=== PATIENT | male | born 1965 | race Caucasian/White ===

== ENCOUNTER → 2018-06-08 | Outpatient (CLI) | payer SELFPAY | LOC: LAB.R 08:00 | PROVIDERS: ATTEND Nurse Practitioner Family | DX: R19.7 Diarrhea, unspecified (principal) | CPT/HCPCS: 87493 ==

== ENCOUNTER 2018-10-02 10:13 | Outpatient (CLI) | payer SELFPAY ==
[2018-10-02 17:52] LABS: ALBUMIN 3.9 g/dL (3.2-5.5); ALBUMIN/GLOBULIN RATIO 1.1 (1.0-2.2); BILIRUBIN,TOTAL 1.1 mg/dL (0.2-1.0); CALCIUM 8.5 mg/dL (8.5-10.3); CREATININE 0.9 mg/dL (0.6-1.2); TOTAL PROTEIN 7.5 g/dL (6.7-8.2)
[2018-10-02 17:54] LABS: BASOPHILS % (AUTO) 1.1 %; EOSINOPHILS # (AUTO) 0.2 10^3/uL (0.0-0.7); LYMPHOCYTES % (AUTO) 23.1 %; MEAN CORPUSCULAR HEMOGLOBIN 28.7 pg (27.0-31.0); MEAN CORPUSCULAR HGB CONC 32.8 g/dL (32.0-36.0); MEAN CORPUSCULAR VOLUME 87.4 fL (80.0-94.0); MEAN PLATELET VOLUME 7.8 fL (7.4-11.4); MONOCYTES # (AUTO) 0.4 10^3/uL (0.0-1.0); MONOCYTES % (AUTO) 8.9 %; NEUTROPHILS # (AUTO) 2.6 10^3/uL (1.5-6.6); NEUTROPHILS % (AUTO) 61.9 %; PLT - PLATELET COUNT 261 10^3/uL (130-450); RED BLOOD COUNT 4.88 10^6/uL (4.70-6.10); RED CELL DISTRIBUTION WIDTH 14.3 % (12.0-15.0); WHITE BLOOD COUNT 4.2 x10^3/uL (4.8-10.8)
== END 2018-10-02 10:14 | disposition home or self-care (01) ==
LOC: LAB.F 10:13
PROVIDERS: ATTEND Nurse Practitioner Family
DX: R61 Generalized hyperhidrosis (principal)
CPT/HCPCS: 36415; 80053; 84443; 85025

== ENCOUNTER 2018-11-14 09:00 | Outpatient (CLI) | payer MEDICAID ==
[2018-11-15 10:18] LABS: BILIRUBIN,URINE NEGATIVE (NEGATIVE); GLUCOSE, URINE (UA) NEGATIVE (NEGATIVE); KETONES,URINE (UA) NEGATIVE (NEGATIVE); LEUKOCYTE ESTERASE, URINE NEGATIVE (NEGATIVE); NITRITE,URINE NEGATIVE (NEGATIVE); OCCULT BLOOD,URINE NEGATIVE (NEGATIVE); PROTEIN,URINE NEGATIVE (NEGATIVE); UROBILINOGEN,URINE 0.2 (NORMAL) E.U./dL (NORMAL)
[2018-11-15 10:20] LABS: CLARITY,URINE TURBID (CLEAR)
[2018-11-15 10:29] LABS: AMORPHOUS SEDIMENT,UR Moderate /LPF; BACTERIA,URINE Rare /HPF (None Seen); CRYSTALS,URINE 3-5 Calcium Oxalate /LPF; MUCUS,URINE Few Strands; RBC,URINE 0-5 /HPF (0-5); SQUAMOUS EPITHELIAL CELL,UR FEW Squamous (<= Few)
== END 2018-11-14 23:59 ==
LOC: LAB.R 09:00
PROVIDERS: ATTEND Nurse Practitioner Family
DX: R61 Generalized hyperhidrosis (principal)
CPT/HCPCS: 81001; 81003; 87086

== ENCOUNTER 2018-11-16 07:47 | Outpatient (CLI) | payer MEDICAID ==
[2018-11-16 10:20] LABS: BILIRUBIN,URINE NEGATIVE (NEGATIVE); GLUCOSE, URINE (UA) NEGATIVE (NEGATIVE); KETONES,URINE (UA) NEGATIVE (NEGATIVE); LEUKOCYTE ESTERASE, URINE NEGATIVE (NEGATIVE); NITRITE,URINE NEGATIVE (NEGATIVE); OCCULT BLOOD,URINE TRACE-LYSE (NEGATIVE); PH,URINE 5.5 PH (5.0-7.5); PROTEIN,URINE NEGATIVE (NEGATIVE); UROBILINOGEN,URINE 0.2 (NORMAL) E.U./dL (NORMAL)
[2018-11-16 10:41] LABS: BACTERIA,URINE Moderate /HPF (None Seen); CLARITY,URINE CLOUDY (CLEAR); MUCUS,URINE Few Strands; RBC,URINE 0-5 /HPF (0-5); SQUAMOUS EPITHELIAL CELL,UR RARE Squamous (<= Few)
[2018-11-16 12:14] LABS: PROLACTIN 13.13 ng/mL
[2018-11-16 12:35] LABS: FOLLICLE STIMULATING HORMONE 14.98 mIU/mL
[2018-11-16 12:36] LABS: LUTEINIZING HORMONE 8.78 mIU/mL
[2018-11-16 13:15] LABS: CORTISOL 11.1 ug/dL; FREE T4 (FREE THYROXINE) 0.88 ng/dL (0.58-1.64)
== END 2018-11-16 07:48 | disposition home or self-care (01) ==
LOC: LAB.F 07:47
PROVIDERS: ATTEND Physician Assistant Medical
DX: R53.83 Other fatigue (principal); R61 Generalized hyperhidrosis; K52.9 Noninfective gastroenteritis and colitis, unspecified; R68.82 Decreased libido
CPT/HCPCS: 36415; 81001; 81599; 82024; 82533; 83001; 83002; 84146; 84403; 84439; 87086

== ENCOUNTER 2018-11-16 09:15 | Outpatient (CLI) | payer MEDICAID ==
--- NOTE | 2018-11-16 15:35 | XRAY Report ---
Reason: COUGH Procedure Date: 11/16/2018 Accession Number: [id number] / [id number] Procedure: XR - Chest 2 View X-Ray CPT Code: 64425 FULL RESULT: EXAM: CHEST RADIOGRAPHY EXAM DATE: 11/16/2018 09:36 AM. CLINICAL HISTORY: COUGH. COMPARISON: 10/24/2013 1:16 PM. TECHNIQUE: 2 views. FINDINGS: Lungs/Pleura: Mild left basilar atelectasis No focal opacities evident. No pleural effusion. No pneumothorax. Decreased volumes. Mediastinum: Heart and mediastinal contours are unremarkable. Other: None. IMPRESSION: Mild left basilar atelectasis RADIA
== END 2018-11-16 09:16 | disposition home or self-care (01) ==
LOC: DI 09:15
PROVIDERS: ATTEND Physician Assistant Medical
DX: R05 Cough (principal); J98.11 Atelectasis; R53.83 Other fatigue; R61 Generalized hyperhidrosis; K52.9 Noninfective gastroenteritis and colitis, unspecified; R68.82 Decreased libido
CPT/HCPCS: 36415; 71046; 81001; 81599; 82024; 82533; 83001; 83002; 84146; 84403; 84439; 87086

== ENCOUNTER 2018-12-06 11:07 | Outpatient (CLI) | payer MEDICAID ==
--- NOTE | 2018-12-06 13:38 | Ultrasound Report ---
Reason: FLANK PAIN, CALCIUM OXALATE UROLITHIASIS Procedure Date: 12/06/2018 Accession Number: [id number] / [id number] Procedure: US - Retroperitoneal CPT Code: FULL RESULT: EXAM: RENAL ULTRASOUND EXAM DATE: 12/06/2018 11:12 AM. CLINICAL HISTORY: FLANK PAIN, CALCIUM OXALATE UROLITHIASIS. COMPARISON: None. TECHNIQUE: Real-time scanning was performed with static images obtained. FINDINGS: Right Kidney: 11.7 x 5.3 x 6.7. cm. Normal cortical echotexture with no appreciable mass or hydronephrosis. 4 mm hyperechoic focus superior pole favoring possible stone. Left Kidney: 12 x 5.7 x 6 cm. Normal echotexture with no stones, contour-deforming masses, or hydronephrosis. Bladder: Bilateral jets seen. The prevoid bladder volume was 85 cc. The postvoid bladder volume was 4 cc. Other: Nonspecific cone-shaped echogenic appearance to the central prostate gland along the expected course of the prostatic urethra measuring 9 x 8 x 16 mm. IMPRESSION: 1. Possible 4 mm nonobstructive right upper pole nephrolithiasis. 2. Nonspecific echogenic appearance to the central prostate gland along expected course of prostatic urethra. Correlate with history of prior instrumentation/TURP. RADIA
== END 2018-12-06 11:08 | disposition home or self-care (01) ==
LOC: DI 11:07
PROVIDERS: ATTEND Physician Assistant Medical
DX: R10.9 Unspecified abdominal pain (principal); N20.0 Calculus of kidney
CPT/HCPCS: 76770

== ENCOUNTER 2018-12-12 08:00 | Outpatient (CLI) | payer MEDICAID | END 2018-12-12 23:59 | disposition home or self-care (01) | LOC: LAB.F 08:00 | PROVIDERS: ATTEND Internal Medicine | DX: Z12.5 Encounter for screening for malignant neoplasm of prostate (principal) | CPT/HCPCS: 36415; 84153 ==

== ENCOUNTER 2019-10-08 13:07 | Outpatient (CLI) | payer MEDICAID ==
--- NOTE | 2019-10-09 21:06 | SLEEP CARE CONSULTATION ---
Information from patient questionnaire entered by Rebecca Islas. I have reviewed and concur with the information entered by Rebecca Islas. This document represents the service I personally performed and the decisions made by me, Abel Sands MD, [facility]. History of Present Illness Reason for Visit: New patient Chief Complaint: reports: Excessive daytime sleepiness, Fatigue Duration of Symptoms: 3 years Usual bedtime: 2300 Time it takes to fall asleep: few minutes Snores at night: No Observed to quit breathing while asleep: No Sleeps alone due to snoring: No Number of times waking at night: 1 Reasons for waking at night: reports: Bathroom Toss, Turn, or Twitch while sleeping: Yes Recalls having dreams: No Usually gets out of bed at: [id number] Feels refreshed in the morning: No Morning headache: Yes Sleepy or fatigued during the day: Yes Ever fallen asleep while driving: Yes Takes day naps: No Dreams during day naps: Yes Prior sleep studies: No Additional HPI information: I had the pleasure of seeing Mr. Salinas today regarding the possibility of him having a sleep disorder. As you know, he is a 54 year old gentleman who complains of excessive daytime sleepiness and persistent fatigue for the past 3 years. The patient tells me that he normally goes to bed around 11 pm, and it takes him approximately just a few minutes to fall asleep. He has not been told that he snores loudly or irregularly at night. He has never been observed to stop breathing in his sleep. His sleeps in the same bed. He can recall waking up on the average of 1 - 2 times during the night. Most of the time he wakes up because of having to use the bathroom. He has never awakened because of his own snoring, choking, or having to gasp for air. There is a lot of tossing and turning in his sleep. He has somniloquy (sleep talking) but not somnambulism (sleep walking). Generally he can recall having dreams. In the morning he usually gets up out of the bed around 6 - 7 a.m. not feeling refreshed nor rested. He usually has a morning headache. During the day he complains of feeling sleepy and fatigued. His score on [place] Sleepiness Scale is 10 out of 24. He has fallen asleep while driving and has gone out of the geeta. He usually does not take naps during the day. Upon falling asleep during the day he reports having dreams. He has never had sleep paralysis, experienced cataplexy but reports symptoms of restless leg syndrome. He also reports having impaired concentration during the day. 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 Patient is and lives in [place]. Have you smoked in the past 12 months: No Alcohol use: Yes Alcohol amount and frequency: 1/month Caffeine use: Yes Caffeine amount and frequency: 3-4/day Family History Family history of sleep disordered breathing: No Allergies and Home Medications Drug allergies reviewed: Yes Home medication list reviewed: Yes Allergy and home medication list: Meds: fluoxetine in the evening and testosterone Allergies: no known drug allergies Review of Systems Weight gain over past 5 years: 20 Cardiovascular: denies: high blood pressure, palpitations, chest pain, irregular heart rate or pulse, leg or foot swelling, have to sleep sitting up, other Respiratory: reports: shortness of breath, wheeze Gastrointestinal: reports: heartburn, abdominal pain Neurological: reports: headaches Psychiatric: reports: anxiety, depression, mood disorder Ear/Nose/Throat: reports: nasal congestion Endocrine: reports: sluggishness, too hot or cold, unexplained weakness Musculoskeletal: denies: joint pain, neck pain, back pain, joint swelling, muscle pain or cramping, mobility problems, other Immunologic: reports: sneezing, allergies to food or environment Physical Exam Vital signs obtained and entered by: Dr. Sands Blood Pressure: 127/86 Cuff size: regular Heart Rate: 57 O2 Saturation: 95 Height: 5 ft 9 in Weight: 180 lb Body Mass Index: 26.6 BMI Classification: Overweight Neck circumference: 16 Mood/affect: normal HEENT: No craniofacial malformation Nostrils: patent to airflow Turbinates: normal Septum: midline Mouth and throat: narrow oropharynx Soft palate: long Hard palate: normal Uvula: normal Uvula visualization: 50% Mallampati Class II Tongue: normal in size Tonsils: small Chin and jaw: normal size and position Neck: normal w/o lymphadenopathy or thyromegaly Heart: regular rate and rhythm Lungs: clear bilaterally Abdomen: soft, non-tender Extremities: no edema or clubbing Neurologic: intact, no focal deficits Impression and Plan IMPRESSION: 1. Hypersomnia, despite getting enough sleep at night. We will first rule out sleep disrupting conditions such as sleep-disordered breathing. Narrow oropharynx and obesity are common predisposing factors for obstructive sleep apnea-hypopnea syndrome. I recommend proceeding to polysomnography to further evaluate his complaint of excessive daytime sleepiness. I informed the patient of what the sleep studies involve and after some discussion, he agreed to proceed. Multiple sleep latency test (MSLT) cannot be performed at this time because the patient is taking a selective serotonin reuptake inhibitor which can suppress REM sleep. Plan: 1. Schedule an in-laboratory polysomnography 2. Avoid long distance driving or when feeling sleepy. 3. Avoid alcohol, sedative and muscle relaxant around bedtime. 4. Attempt to lose weight. 5. Return in 1 to 2 weeks after the study to discuss results and initiate therapy. I spent 100% of this 20 minute visit face to face with the patient with greater than 50% of this was spent time counseling the patient and coordination of care.
[2019-10-09 21:07] VITALS: BP 127/86
== END 2019-10-08 13:08 | disposition home or self-care (01) ==
LOC: SC 13:07
PROVIDERS: ATTEND Internal Medicine Pulmonary Disease
DX: G47.10 Hypersomnia, unspecified (principal)
CPT/HCPCS: 99203; 99212

== ENCOUNTER 2019-10-25 19:33 | Outpatient (CLI) | payer MEDICAID | END 2019-10-25 19:34 | disposition home or self-care (01) | LOC: SC 19:33 | PROVIDERS: ATTEND Internal Medicine Pulmonary Disease | DX: G47.33 Obstructive sleep apnea (adult) (pediatric) (principal); G47.61 Periodic limb movement disorder; G47.63 Sleep related bruxism | CPT/HCPCS: 95810 ==

== ENCOUNTER 2020-01-28 11:13 | Outpatient (CLI) | payer MEDICAID ==
--- NOTE | 2020-01-28 11:04 | SLEEP CARE CONSULTATION ---
Information from patient questionnaire entered by Donna Martínez. I have reviewed and concur with the information entered by Donna Martínez. This document represents the service I personally performed and the decisions made by me, Abel Sands MD, [facility]. History of Present Illness Previous diagnosis: Mild, Obstructive Sleep Apnea-Hypopnea Syndrome AHI: 13.3 (in 2019) Reason for follow up: other (positional therapy) HPI additional information: To minimize the risk of COVID-19 exposure, we have the option to conduct your visit with me over the phone. I will be able to discuss your health and offer medical advice. If you agree, we will bill your insurance. Do you agree to this telephone service: YES. HPI: Mr. Salinas was called today to follow up on positioning therapy. He was diagnosed to have mild obstructive sleep apnea-hypopnea syndrome but severe when sleeping supine. The patient reports using a pillow to keep him from rolling onto his back. According to him, this works beautifully. He does not snore much. He wakes up feeling rested and stays awake/alert during the day. Subjective Initial [place] Sleepiness Scale score: 20 Allergies and Home Medications Drug allergies reviewed: Yes Home medication list reviewed: Yes Review of Systems Review of systems same as previous: Yes Physical Exam Height: 5 ft 9 in Impression and Plan IMPRESSION: 1. Obstructive Sleep Apnea-Hypopnea Syndrome, mild, with the patient doing well with positioning therapy. He will stay with the treatment. He does not wish to try CPAP at this time. PLAN: 1. Continue with the positioning therapy. 2. Return for follow up on as needed basis. 3. Consider CPAP therapy if later on he has to sleep on his back part of the night. I spent 100% of the 6 minute phone call with the patient with greater than 50% of this was spent time counseling the patient and coordination of care.
== END 2020-01-28 11:14 | disposition home or self-care (01) ==
LOC: SC 11:13
PROVIDERS: ATTEND Internal Medicine Pulmonary Disease
DX: G47.33 Obstructive sleep apnea (adult) (pediatric) (principal)

== ENCOUNTER 2020-10-26 09:40 | Outpatient (CLI) | payer MEDICAID ==
[2020-10-26 10:01] LABS: BASOPHILS # (AUTO) 0.1 10^3/uL (0.0-0.1); BASOPHILS % (AUTO) 1.2 %; EOSINOPHILS # (AUTO) 0.2 10^3/uL (0.0-0.7); EOSINOPHILS % (AUTO) 3.8 %; HCT - HEMATOCRIT 47.1 % (42.0-52.0); HGB - HEMOGLOBIN 15.7 g/dL (14.0-18.0); LYMPHOCYTES # (AUTO) 1.1 10^3/uL (1.5-3.5); LYMPHOCYTES % (AUTO) 22.6 %; MEAN CORPUSCULAR HEMOGLOBIN 28.9 pg (27.0-31.0); MEAN CORPUSCULAR HGB CONC 33.3 g/dL (32.0-36.0); MEAN CORPUSCULAR VOLUME 86.7 fL (80.0-94.0); MONOCYTES # (AUTO) 0.4 10^3/uL (0.0-1.0); MONOCYTES % (AUTO) 8.2 %; NEUTROPHILS # (AUTO) 3.2 10^3/uL (1.5-6.6); NEUTROPHILS % (AUTO) 63.6 %; PLT - PLATELET COUNT 249 10^3/uL (130-450); RED BLOOD COUNT 5.43 10^6/uL (4.70-6.10)
[2020-10-26 10:19] LABS: ALBUMIN 4.2 g/dL (3.2-5.5); ALBUMIN/GLOBULIN RATIO 1.2 (1.0-2.2); ALKALINE PHOSPHATASE 86 IU/L (42-121); ALT ALANINE AMINOTRANSFERASE 16 IU/L (10-60); AST ASPARTATE AMINOTRANSFERASE 27 IU/L (10-42); BILIRUBIN,TOTAL 0.8 mg/dL (0.2-1.0); BUN - BLOOD UREA NITROGEN 16 mg/dL (6-20); CALCIUM 9.3 mg/dL (8.5-10.3); CARBON DIOXIDE - CO2 23 mmol/L (21-32); CHLORIDE 103 mmol/L (101-111); CHOL/HDL RATIO 7.2 (<5.0); CHOLESTEROL 310 mg/dL; CREATININE 0.9 mg/dL (0.6-1.2); GFR - MDRD 87 (>89); GLUCOSE 96 mg/dL (70-100); HDL CHOLESTEROL 43 mg/dL; LDL CHOLESTEROL,CALCULATED 211 mg/dL; LDL/HDL RATIO 4.9 (<3.6); POTASSIUM 4.1 mmol/L (3.5-5.0); SODIUM 133 mmol/L (135-145); TOTAL PROTEIN 7.8 g/dL (6.7-8.2); TRIGLYCERIDES 278 mg/dL; VLDL CHOLESTEROL 56 mg/dL
[2020-10-26 10:30] LABS: THYROID STIMULATING HORMONE 2.34 uIU/mL (0.34-5.60)
== END 2020-10-26 09:41 | disposition home or self-care (01) ==
LOC: LAB 09:40
PROVIDERS: ATTEND Physician Assistant
DX: Z00.00 Encounter for general adult medical examination without abnormal findings (principal); Z51.81 Encounter for therapeutic drug level monitoring; Z79.899 Other long term (current) drug therapy; R51.9 Headache, unspecified; R53.83 Other fatigue; E78.5 Hyperlipidemia, unspecified
CPT/HCPCS: 36415; 80053; 80061; 81599; 83721; 84153; 84402; 84403; 84443; 85025

== ENCOUNTER 2020-12-08 07:17 | Day surgery (SDC) | payer MEDICAID ==
[2020-12-08] MEDS ORDERED: LACTATED RINGERS 1,000 ML IV ONE ×2 (07:29→09:06)
[2020-12-08] MEDS ORDERED: fentaNYL 250 MCG/5 ML VIAL ONE (08:43)
[2020-12-08] MEDS ORDERED: MIDAZOLAM 2 MG/2 ML VIAL ONE ×2 (08:43→08:44)
[2020-12-08 09:33] VITALS: BP 98/62
== END 2020-12-08 07:18 | disposition home or self-care (01) ==
LOC: SDS 07:17
PROVIDERS: ATTEND Surgery
PROC: 0DBN8ZZ Excision of Sigmoid Colon, Via Natural or Artificial Opening Endoscopic (ICD-10-PCS; principal; 2020-12-08 08:30)
DX: Z12.11 Encounter for screening for malignant neoplasm of colon (principal); D12.5 Benign neoplasm of sigmoid colon; K57.30 Diverticulosis of large intestine without perforation or abscess without bleeding; K64.8 Other hemorrhoids; E23.0 Hypopituitarism; Z79.82 Long term (current) use of aspirin; Z79.899 Other long term (current) drug therapy
CPT/HCPCS: 45385; J3010; J7120

== ENCOUNTER 2021-04-29 08:01 | Outpatient (CLI) | payer MEDICAID ==
--- NOTE | 2021-04-30 11:25 | Ultrasound Report ---
LIMITED ULTRASOUND OF RIGHT BREAST AND AXILLA: 04/29/2021 CLINICAL: Palpable right axilla lump. Comparison is made to exam dated: 04/29/2021 mammogram - [facility]. Color flow and real-time ultrasound of the right breast axilla were performed. Mei scale images of the real-time examination were reviewed. No significant abnormalities were seen sonographically in the right axilla. No mass or other abnorma lity to correspond with a clinically palpable finding. IMPRESSION: NEGATIVE There is no sonographic evidence of malignancy. This exam was interpreted at Station ID: [id number]. Electronically Signed By: Kareem Norton M.D. jr/:04/29/2021 09:43:11 Ultrasound BI-RADS: 1 Negative BI-RADS CATEGORY: (1) - 1 Unspecified - other recall n/a LATERALITY: (B)
--- NOTE | 2021-04-30 11:25 | Mammography Report ---
MALE BILATERAL DIGITAL DIAGNOSTIC MAMMOGRAM 3D/2D: 04/29/2021 CLINICAL: Palpable right breast lump. No prior exams were available for comparison. There is a benign area of fibroglandular tissue in the right breast central to the nipple in the retr oareolar region. There is a benign area of fibroglandular tissue in the left breast central to the nipple in the retro areolar region. No other significant masses or calcifications are seen in either breast. IMPRESSION: INCOMPLETE: NEEDS ADDITIONAL IMAGING EVALUATION No mass or suspicious finding. An ultrasound of the right axillary palpable region will be performed, which is not within the field of view on this mammogram. This exam was interpreted at Station ID: [id number]. NOTE: For mammograms, a report in lay terms will be sent to the patient. Approximately 15% of breast malignancies will not be visualized mammographically. In the management of a palpable breast mass, a negative mammogram must not discourage biopsy of a clinically suspicious lesion. Electronically Signed By: Kareem Norton M.D. jr/:04/29/2021 09:42:19 ACR BI-RADS Category 0: Incomplete 3340F PARENCHYMAL PATTERN: (A) - The breast(s) demonstrate(s) scattered fibroglandular densities. BI-RADS CATEGORY: (0) - 0 Unspecified - other recall n/a LATERALITY: (B)
== END 2021-04-29 08:02 | disposition home or self-care (01) ==
LOC: DI 08:01
PROVIDERS: ATTEND Physician Assistant
DX: N63.31 Unspecified lump in axillary tail of the right breast (principal); M25.541 Pain in joints of right hand
CPT/HCPCS: 36415; 80061; 83721; 84550; 85651; 86140; 86200; 86430

== ENCOUNTER 2021-04-29 09:30 | Outpatient (CLI) | payer MEDICAID ==
[2021-04-29 10:21] LABS: CHOL/HDL RATIO 3.9 (<5.0); CHOLESTEROL 150 mg/dL; HDL CHOLESTEROL 38 mg/dL; LDL CHOLESTEROL,CALCULATED 78 mg/dL; LDL/HDL RATIO 2.1 (<3.6); TRIGLYCERIDES 172 mg/dL; URIC ACID 5.3 mg/dL (2.6-7.2); VLDL CHOLESTEROL 34 mg/dL
[2021-04-29 10:26] LABS: CRP - C-REACTIVE PROTEIN < 1.0 mg/dL (0-1.0)
[2021-04-29 13:07] LABS: RHEUMATOID FACTOR NEGATIVE (Negative)
== END 2021-04-29 09:31 | disposition home or self-care (01) ==
LOC: LAB 09:30
PROVIDERS: ATTEND Physician Assistant
DX: M25.541 Pain in joints of right hand (principal)
CPT/HCPCS: 36415; 80061; 83721; 84550; 85651; 86140; 86200; 86430

== ENCOUNTER 2021-05-17 12:22 | Outpatient (CLI) | payer MEDICAID ==
--- NOTE | 2021-05-17 11:26 | XRAY Report ---
PROCEDURE: Shoulder 3 View RT INDICATIONS: SHOULDER IMPINGEMENT SYNDROME TECHNIQUE: 3 views of the shoulder were acquired. COMPARISON: None. FINDINGS: Bones: No fractures or dislocations. No suspicious bony lesions. Visualized ribs appear intact. H umeral head is high riding. Appearance of degenerative cystic changes noted within the humeral head a s well as prominence of the tuberosity appearing degenerative. Minimal to mild acromioclavicular narr owing. Soft tissues: No suspicious soft tissue calcifications. Tendon anchors noted overlying the right hu meral head. IMPRESSION: 1. High riding humeral head which can be seen with rotator cuff pathology. 2. Cystic change humeral head appearing degenerative including prominent at the tuberosity. Reviewed by: Lynn Alan MD on 05/17/2021 11:24 AM PDT Approved by: Lynn Alan MD on 05/17/2021 11:24 AM PDT Station ID: [id number]
== END 2021-05-17 23:59 | disposition home or self-care (01) ==
LOC: DI.N 12:22
PROVIDERS: ATTEND Physician Assistant
DX: R93.6 Abnormal findings on diagnostic imaging of limbs (principal)

== ENCOUNTER 2021-07-27 09:19 | Outpatient (CLI) | payer MEDICAID | END 2021-07-27 09:20 | disposition home or self-care (01) | LOC: LAB 09:19 | PROVIDERS: ATTEND Internal Medicine | DX: E29.1 Testicular hypofunction (principal) | CPT/HCPCS: 81599; 84402; 84403 ==

== ENCOUNTER 2022-07-06 18:07 | Emergency (ER) | payer MEDICAID ==
[2022-07-06] MEDS ORDERED: RABIES IMMUNE GLOBULIN 300 UNITS/2 ML IM STA (19:18)
[2022-07-06] MEDS ORDERED: RABIES VACCINE 2.5 UNIT SYRINGE IM ONE (19:18)
--- NOTE | 2022-07-06 19:22 | ED Physician Documentation ---
History of Present Illness - Stated complaint Stated Complaint: BAT EXPOSURE - Chief complaint Chief Complaint: General - History obtained from History obtained from: Patient - History of Present Illness Pain level max: 0 Pain level now: 0 - Additonal information Additional information: 56-year-old male states that he had a bat exposure approximately 4 days ago at home. Their primary care provider told him to come to the emergency department for rabies immunoglobulin and vaccination series. Review of Systems Constitutional: denies: Fever, Chills Respiratory: denies: Dyspnea GI: denies: Vomiting PD PAST MEDICAL HISTORY - Past Medical History Cardiovascular: High cholesterol Respiratory: None Endocrine/Autoimmune: None GI: None : None HEENT: None Psych: Anxiety Musculoskeletal: None Derm: None - Past Surgical History Past Surgical History: Yes Ortho: Shoulder arthroplasty - Present Medications Home Medications: Ambulatory Orders Medication Instructions Recorded Confirmed Fluoxetine HCl [Prozac] 40 mg PO DAILY PM 12/07/20 12/08/20 Rosuvastatin Calcium [Crestor] 20 mg PO DAILY PM 12/07/20 12/08/20 - Allergies Allergies/Adverse Reactions: Allergies Allergy/AdvReac Type Severity Reaction Status Date / Time No Known Drug Allergies Allergy Verified 07/06/22 18:23 - Social History Does the pt smoke?: No Smoking Status: Never smoker Does the pt drink ETOH?: Yes Does the pt have substance abuse?: No - Immunizations Immunizations are current?: Yes - POLST Patient has POLST: No PD ED PE NORMAL - Vitals Vital signs reviewed: Yes - General General: Alert and oriented X 3, No acute distress - HEENT HEENT: Moist mucous membranes - Respiratory Respiratory: No respiratory distress - Derm Derm: Warm and dry - Neuro Neuro: Alert and oriented X 3 Results - Vitals Vitals: Vital Signs - 24 hr 07/06/22 07/06/22 18:21 20:43 Temperature 36.4 C L 36.6 C Heart Rate 88 57 L Respiratory 16 16 Rate Blood Pressure 119/67 111/68 O2 Saturation 96 98 Oxygen O2 Source Room air PD MEDICAL DECISION MAKING - ED course Complexity details: considered differential, d/w patient ED course: Patient was given the rabies vaccination and rabies immunoglobulin. He was given recommendation for follow-up to complete the course of treatment. Patient counseled regarding signs and symptoms for which I believe and urgent re- evaluation would be necessary. Patient with good understanding of and agreement to plan and is comfortable going home at this time This document was made in part using voice recognition software. While efforts are made to proofread this document, sound alike and grammatical errors may occur. Departure - Departure Disposition: 01 Home, Self Care Clinical Impression: Rabies, need for prophylactic vaccination against Condition: Good Instructions: Rabies Follow-Up: your,doctor tomorrow [Other] Comments: You were given the rabies vaccine tonight. Please follow-up with your doctor for the remainder of the vaccination series. Your doctor can fax an order to the [facility] at [phone] and they will arrange the remainder of the rabies series for you. Alternatively you may return here on day 3, 7, 14 for the remainder of your vaccinations. today is day 0. The next doses will be 07/09, 07/13, and 07/20 Discharge Date/Time: 07/06/22 20:45
[2022-07-06 20:44] VITALS: BP 111/68
== END 2022-07-06 20:45 | disposition home or self-care (01) ==
LOC: ED 18:07
DX: Z29.14 Encounter for prophylactic rabies immune globulin (principal)
CPT/HCPCS: 90471; 96372; 99281; 99282

== ENCOUNTER 2022-07-09 12:05 | Emergency (ER) | payer MEDICAID ==
[2022-07-09 12:23] VITALS: BP 111/75
[2022-07-09] MEDS: RABIES VACCINE 2.5 UNIT SYRINGE IM ONE (12:45)
--- NOTE | 2022-07-09 12:56 | ED Physician Documentation ---
History of Present Illness - Stated complaint Stated Complaint: RABIE SHOT 2ND - Chief complaint Chief Complaint: General - History obtained from History obtained from: Patient - History of Present Illness Timing: How many days ago (3) Quality: here for 2nd in series of rabies vaccine, having been exposed to bat in house without known bite/contact. Got first one 3 days ago without symptoms other than mild local soreness of injection. Review of Systems Constitutional: denies: Fever, Chills Skin: denies: Rash, Lesions Neurologic: denies: Headache PD PAST MEDICAL HISTORY - Past Medical History Cardiovascular: High cholesterol Respiratory: None Endocrine/Autoimmune: None GI: None : None HEENT: None Psych: Anxiety Musculoskeletal: None Derm: None - Past Surgical History Past Surgical History: Yes Ortho: Shoulder arthroplasty - Present Medications Home Medications: Ambulatory Orders Medication Instructions Recorded Confirmed Fluoxetine HCl [Prozac] 40 mg PO DAILY PM 12/07/20 12/08/20 Rosuvastatin Calcium [Crestor] 20 mg PO DAILY PM 12/07/20 12/08/20 - Allergies Allergies/Adverse Reactions: Allergies Allergy/AdvReac Type Severity Reaction Status Date / Time No Known Drug Allergies Allergy Verified 07/09/22 12:24 - Social History Does the pt smoke?: No Smoking Status: Never smoker Does the pt drink ETOH?: Yes Does the pt have substance abuse?: No - Immunizations Immunizations are current?: Yes - POLST Patient has POLST: No PD ED PE NORMAL - Vitals Vital signs reviewed: Yes - General General: Alert and oriented X 3, No acute distress, Well developed/nourished - Derm Derm: Normal color, Warm and dry - Extremities Extremities: Normal ROM s pain - Neuro Neuro: Alert and oriented X 3, No motor deficit, Normal speech Results - Vitals Vitals: Vital Signs - 24 hr 07/09/22 12:21 Temperature 36.1 C L Heart Rate 67 Respiratory 16 Rate Blood Pressure 111/75 O2 Saturation 97 Oxygen O2 Source Room air PD MEDICAL DECISION MAKING - ED course Complexity details: reviewed old records, d/w patient Departure - Departure Disposition: 01 Home, Self Care Clinical Impression: Rabies, need for prophylactic vaccination against Condition: Stable Record reviewed to determine appropriate education?: Yes Comments: You received the second in the series for rabies vaccination. Return in or follow-up for the third and fourth doses as outlined on your initial visit at the appropriate times. Typically that is 1 week and 2 weeks after the initial vaccine. Discharge Date/Time: 07/09/22 13:03
== END 2022-07-09 13:03 | disposition home or self-care (01) ==
LOC: ED 12:05
DX: Z29.14 Encounter for prophylactic rabies immune globulin (principal); Z23 Encounter for immunization; Z71.85 Encounter for immunization safety counseling
CPT/HCPCS: 90471

== ENCOUNTER 2022-10-01 23:19 | Emergency (ER) | payer MEDICAID ==
[2022-10-02] MEDS ORDERED: FAMOTIDINE 20 MG/2 ML VIAL IVP STA (00:06)
[2022-10-02] MEDS ORDERED: KETOROLAC 15 MG/ML VIAL IVP STA (00:06)
[2022-10-02] MEDS ORDERED: SODIUM CHLORIDE 0.9% 1,000 ML IV STA (00:06)
[2022-10-02 00:15] LABS: BASOPHILS % (AUTO) 0.4 %; EOSINOPHILS # (AUTO) 0.1 10^3/uL (0.0-0.7); EOSINOPHILS % (AUTO) 1.1 %; HCT - HEMATOCRIT 43.7 % (42.0-52.0); HGB - HEMOGLOBIN 14.1 g/dL (14.0-18.0); LYMPHOCYTES # (AUTO) 0.6 10^3/uL (1.5-3.5); LYMPHOCYTES % (AUTO) 6.5 %; MEAN CORPUSCULAR HEMOGLOBIN 28.4 pg (27.0-31.0); MEAN CORPUSCULAR HGB CONC 32.3 g/dL (32.0-36.0); MEAN CORPUSCULAR VOLUME 88.1 fL (80.0-94.0); MEAN PLATELET VOLUME 9.2 fL (7.4-11.4); MONOCYTES # (AUTO) 0.8 10^3/uL (0.0-1.0); MONOCYTES % (AUTO) 8.7 %; PLT - PLATELET COUNT 227 10^3/uL (130-450); RED BLOOD COUNT 4.96 10^6/uL (4.70-6.10); RED CELL DISTRIBUTION WIDTH 13.6 % (12.0-15.0); WHITE BLOOD COUNT 9.7 x10^3/uL (4.8-10.8)
[2022-10-02 00:28] LABS: ALBUMIN 3.7 g/dL (3.2-5.5); BILIRUBIN,TOTAL 0.7 mg/dL (0.2-1.0); CALCIUM 8.8 mg/dL (8.5-10.3); POTASSIUM 3.8 mmol/L (3.5-5.0); TOTAL PROTEIN 7.4 g/dL (6.7-8.2)
--- NOTE | 2022-10-02 01:57 | ED Physician Documentation ---
History of Present Illness - Stated complaint Stated Complaint: NEAR SYNCOPE - Chief complaint Chief Complaint: Neuro - History obtained from History obtained from: Patient - Additonal information Additional information: Patient is a 57-year-old with no significant past medical history presenting for evaluation of a near syncopal episode. Patient had been out at dinner with his , ate mussels, shellfish, oysters.They I then returned home and were relaxing. He had been sitting down in a chair taking a nap and when he stood up, his noticed that he appeared pale. Patient reported that he did not feel well and felt Dizzy. He felt that he Needed to have a bowel movement and had diarrhea.Patient reports still having some mild Periumbilical abdominal discomfort, Feels like a burning but his symptoms are improving.He denies having chest pain, difficulty breathing, headache. He reports feeling fine earlier today. He did have positive orthostatics for the paramedics and was started on IV fluids. Review of Systems Constitutional: denies: Fever Nose: denies: Congestion Cardiac: denies: Chest pain / pressure Respiratory: denies: Dyspnea GI: reports: Abdominal Pain, Diarrhea. denies: Vomiting : denies: Dysuria Musculoskeletal: denies: Back pain Neurologic: reports: Near syncope. denies: Headache PD PAST MEDICAL HISTORY - Past Medical History Past Medical History: Yes Cardiovascular: High cholesterol Respiratory: None Endocrine/Autoimmune: None GI: None : None HEENT: None Psych: Depression, Anxiety Musculoskeletal: None Derm: None - Past Surgical History Past Surgical History: Yes Ortho: Shoulder arthroplasty - Present Medications Home Medications: Ambulatory Orders Medication Instructions Recorded Confirmed Fluoxetine HCl [Prozac] 40 mg PO DAILY PM 12/07/20 07/13/22 Rosuvastatin Calcium [Crestor] 20 mg PO DAILY PM 12/07/20 07/13/22 - Allergies Allergies/Adverse Reactions: Allergies Allergy/AdvReac Type Severity Reaction Status Date / Time No Known Drug Allergies Allergy Verified 10/01/22 23:30 - Social History Does the pt smoke?: No Smoking Status: Never smoker Does the pt drink ETOH?: Yes Does the pt have substance abuse?: No - Immunizations Immunizations are current?: Yes - POLST Patient has POLST: No PD ED PE NORMAL - General General: Alert and oriented X 3, No acute distress, Well developed/nourished - HEENT HEENT: Atraumatic, Moist mucous membranes, Pharynx benign - Neck Neck: Supple, no meningeal sign - Cardiac Cardiac: RRR, No murmur - Respiratory Respiratory: No respiratory distress, Clear bilaterally - Abdomen Abdomen: Normal bowel sounds, Soft, Non distended, Other (Mild periumbilical tenderness to palpation, no rebound, no guarding, No pulsatile masses Or hernia) - Derm Derm: Warm and dry - Neuro Neuro: Alert and oriented X 3, deli slicer 2-12 intact, No motor deficit, Normal speech Results - Vitals Vitals: Vital Signs - 24 hr 10/01/22 10/01/22 10/02/22 23:15 23:29 00:20 Temperature 36.6 C Heart Rate 59 L 65 Heart Rate [ 60 Sitting] Heart Rate [ 70 Standing] Heart Rate [ 58 L Supine] Respiratory 18 23 Rate Blood Pressure 91/62 106/68 Blood Pressure 102/69 [Sitting] Blood Pressure 91/62 [Standing] Blood Pressure 106/68 [Supine] O2 Saturation 96 98 10/02/22 03:10 Temperature 37.2 C Heart Rate 96 Heart Rate [ Sitting] Heart Rate [ Standing] Heart Rate [ Supine] Respiratory 16 Rate Blood Pressure 113/76 Blood Pressure [Sitting] Blood Pressure [Standing] Blood Pressure [Supine] O2 Saturation 99 Oxygen O2 Source Room air - EKG (time done) 2334 Rate: Rate (enter#) (58) Rhythm: NSR Intervals: No: Prolonged QT Ischemia: No: ST elevation c/w ischemia Compare to prior EKG: Unchanged from prior EKG - Labs Labs: Laboratory Tests 10/01/22 10/01/22 00:07 00:07 WBC 9.7 RBC 4.96 Hgb 14.1 Hct 43.7 MCV 88.1 MCH 28.4 MCHC 32.3 RDW 13.6 Plt Count 227 MPV 9.2 Neut # (Auto) 8.0 H Lymph # (Auto) 0.6 L [place] # (Auto) 0.8 Eos # (Auto) 0.1 Baso # (Auto) 0.0 Absolute Nucleated RBC 0.00 Nucleated RBC % 0.0 Sodium 136 Potassium 3.8 Chloride 103 Carbon Dioxide 26 Anion Gap 7.0 BUN 24 H Creatinine 1.0 Estimated GFR (MDRD) 77 L Glucose 122 H Calcium 8.8 Total Bilirubin 0.7 AST 25 ALT 14 Alkaline Phosphatase 89 Total Protein 7.4 Albumin 3.7 Globulin 3.7 Albumin/Globulin Ratio 1.0 Lipase 30 PD MEDICAL DECISION MAKING - ED course Complexity details: reviewed results, re-evaluated patient, d/w patient, d/w family ED course: Patient presenting for evaluation after near syncopal episode. He did have Abd ominal discomfort and diarrhea during this episode. He also was found to be orthostatic.On arrival he is feeling better. His abdominal exam is relatively benign and remained benign on repeated exams. His labs are reassuring. His EKG demonstrates a sinus rhythm. He is feeling better with IV fluids. He is able to ambulate without any difficulty. As his abdominal symptoms are improving and his exam is also benign I do not feel he needs abdominal imaging at this time. Patient counseled on continued supportive care as well as concerning symptoms to return for. Departure - Departure Disposition: 01 Home, Self Care Clinical Impression: Near syncope, GI symptoms Condition: Stable Instructions: ED Near Syncope Unkn Comments: You were evaluated after almost fainting.This episode was likely related to the abdominal symptoms you are experiencing at the time.Your blood pressure was also found to be on the low side. This has improved with IV fluids. Your labs are reassuring. It is also reassuring that you are feeling better and your abdominal symptoms are improving. Please start with a clear liquid or bland diet tomorrow and advance as tolerated. If you have any worsening symptoms please consider return to the ER. Discharge Date/Time: 10/02/22 03:18
[2022-10-02 03:11] VITALS: BP 113/76
== END 2022-10-02 03:18 | disposition home or self-care (01) ==
LOC: EDUNIT# → ED 23:19
DX: R55 Syncope and collapse (principal); R19.7 Diarrhea, unspecified
CPT/HCPCS: 36415; 80053; 83690; 85025; 93005; 96374; 99282

== ENCOUNTER → 2022-10-01 | Outpatient (CLI) | payer MEDICAID | END | disposition critical access hospital (66) | LOC: EMS 22:59 | DX: R10.9 Unspecified abdominal pain (principal); R53.1 Weakness; R15.9 Full incontinence of feces; R55 Syncope and collapse | CPT/HCPCS: A0425; A0429; A0999 ==

== ENCOUNTER 2023-11-26 21:39 | Emergency (ER) | payer MEDICAID ==
[2023-11-26 22:12] VITALS: BP 117/62; O2SAT 97
--- NOTE | 2023-11-26 22:12 | XRAY Report ---
PROCEDURE: Knee 4+V RT INDICATIONS: Trauma. 2 weeks of knee pain with no memory of injury. Severe medial pain tonight. TECHNIQUE: 4 views of the knee(s) were acquired. COMPARISON: None. FINDINGS: Bones: No fractures or dislocations. No suspicious bony lesions. Tricompartmental joint space kimberly rowing with associated osteophytosis. Soft tissues: No knee joint effusion. No suspicious soft tissue calcifications or masses. IMPRESSION: No acute bony abnormality. Mild to moderate tricompartmental osteoarthritis. Kellgren-Sotero scale of osteoarthritis: 2. Reviewed by: Artur Do MD on 11/26/2023 10:10 PM PST Approved by: Artur Do MD on 11/26/2023 10:10 PM PST Station ID: [id number]
--- NOTE | 2023-11-26 22:29 | ED Physician Documentation ---
History of Present Illness - Stated complaint Stated Complaint: RT KNEE INJ - Chief complaint Chief Complaint: Ext Problem - History obtained from History obtained from: Patient - Additonal information Additional information: 58-year-old male presents for approximately 2 weeks of gradually worsening right knee pain. He denies any traumatic injury or accident. Took ibuprofen prior to arrival with some relief of pain. He states that he came in today because when he went to ambulate the middle of his knee was so painful he almost could not bear weight on it. Review of Systems Constitutional: denies: Fever, Chills GI: denies: Abdominal Pain, Nausea, Vomiting Musculoskeletal: reports: Joint pain. denies: Neck pain, Back pain, Extremity pain, Extremity swelling, Joint swelling PD PAST MEDICAL HISTORY - Past Medical History Past Medical History: Yes Cardiovascular: High cholesterol Respiratory: None Endocrine/Autoimmune: None GI: None : None HEENT: None Psych: Depression, Anxiety Musculoskeletal: None Derm: None - Past Surgical History Past Surgical History: Yes Ortho: Shoulder arthroplasty - Present Medications Home Medications: Ambulatory Orders Medication Instructions Recorded Confirmed Fluoxetine HCl [Prozac] 40 mg PO DAILY PM 12/07/20 11/26/23 Rosuvastatin Calcium [Crestor] 20 mg PO DAILY PM 12/07/20 11/26/23 - Allergies Allergies/Adverse Reactions: Allergies Allergy/AdvReac Type Severity Reaction Status Date / Time No Known Drug Allergies Allergy Verified 11/26/23 21:44 - Social History Does the pt smoke?: No Smoking Status: Never smoker Does the pt drink ETOH?: Yes Does the pt have substance abuse?: No - Immunizations Immunizations are current?: Yes - POLST Patient has POLST: No PD ED PE NORMAL - Vitals Vital signs reviewed: Yes - General General: Alert and oriented X 3, No acute distress, Well developed/nourished - Cardiac Cardiac: RRR - Derm Derm: Normal color, Warm and dry, No rash - Extremities Extremities: No deformity, No tenderness to palpate, Normal ROM s pain, No edema, Other (Mild tenderness in the medial compartment of the knee, no deformity, no warmth, no swelling, no fluctuance) - Neuro Neuro: Alert and oriented X 3, steel roller 2-12 intact, No motor deficit, Normal speech Results - Vitals Vitals: Vital Signs - 24 hr 11/26/23 21:44 Temperature 36.5 C Heart Rate 63 Respiratory 16 Rate Blood Pressure 117/62 O2 Saturation 97 Oxygen O2 Source Room air PD Medical Decision Making - ED course Complexity details: reviewed results, re-evaluated patient, considered differential, d/w patient ED course: Well-appearing patient with 2 weeks of progressive atraumatic right knee pain. In the bed patient is full range of motion, medial aspect of the knee has tenderness to deep palpation, however compartments are soft patient is neurologically and vascularly intact. X-rays show mild osteoarthritis. Question if patient has either meniscal or collateral ligament injury, however this would not be seen on x-rays and will need MRI to diagnose. Patient was advised of x-ray results, placed in knee immobilizer for comfort. Recommended Tylenol, Motrin, and Voltaren gel as needed for home use. I offered additional pain medication but patient declined stating that he would manage with [id number] medications. He was counseled that he would need to follow with orthopedics and stated that he would talk to his primary care doctor about referrals. Departure - Departure Disposition: 01 Home, Self Care Clinical Impression: Right knee pain Condition: Stable Instructions: ED Knee Pain UKO, ED RICE Comments: Your x-rays today showed mild osteoarthritis, however no obvious bony abnormalities such as a fracture or break. Wear a knee brace when mobilizing for comfort and compression. Alternate Tylenol and Motrin as needed for pain, you may also apply Voltaren gel for comfort. Please follow-up with orthopedic surgery as they will help to determine if you need any further studies or treat ment. Forms: PCP List Discharge Date/Time: 11/26/23 22:39
== END 2023-11-26 22:39 | disposition home or self-care (01) ==
LOC: ED 21:39
DX: M25.561 Pain in right knee (principal)
CPT/HCPCS: 99283